=== PATIENT | male | born 1970 | race Caucasian/White ===

== ENCOUNTER 2023-10-04 14:59 | Emergency (ER) | payer BC, SELFPAY ==
[2023-10-04 15:04] VITALS: BP 158/94
[2023-10-04 15:25] LABS: % Basophils 0.6 % (0-2); % Eosinophils 5.3 % (0-6); % Immature Granulocytes 1.4 % (0-0.5); % Monocytes 6.5 % (1.7-9.3); % Neutrophils 62.2 % (42.2-75.2); Absolute Eosinophils 0.4 10^3/uL (0-0.7); Absolute Immature Granulocytes 0.1 10^3/uL (0-0.05); Absolute Lymphocytes 1.7 10^3/uL (1.2-3.4); Absolute Monocytes 0.5 10^3/uL (0.1-0.6); Absolute Neutrophils 4.4 10^3/uL (1.4-6.5); Hemoglobin 13.1 g/dL (13.0-18.0); Mean Corp Hgb Conc. 33.6 g/dL (33.0-37.0); Mean Corpuscular Hgb 32.3 pg (27.0-31.0); Mean Corpuscular Volume 96.1 fL (80.0-94.0); Mean Platelet Volume 9.8 fL (7.4-10.4); Nucleated Red Blood Cells % 0 % (-); Platelet Count 269 10^3/uL (130-400); Red Blood Cell Count 4.06 10^6/uL (4.70-6.10); Red Cell Dist. Width 12.3 % (11.5-14.5)
[2023-10-04 15:28] LABS: Urine Albumin Negative (Neg - Trace); Urine Bilirubin Negative (Negative); Urine Character Clear (Clear); Urine Color Yellow; Urine Glucose Negative (Negative); Urine Ketone Negative (Negative); Urine Leukocyte Negative (Negative); Urine Nitrite Negative (Negative); Urine Occult Blood Negative (Negative); Urine Urobilinogen Negative (Neg - 1+)
[2023-10-04 15:43] LABS: ALT (SGPT) 38 U/L (0-50); AST (SGOT) 34 U/L (17-59); Albumin 4.2 g/dl (3.5-5.0); Alkaline Phosphatase 137 U/L (38-126); Blood Urea Nitrogen 12 mg/dl (9-20); Calcium 9.3 mg/dl (8.4-10.2); Carbon Dioxide 32 mmol/L (22-30); Chloride 100 mmol/L (98-107); Glucose 115 mg/dl (70-99); Potassium 5.1 mmol/L (3.5-5.1); Sodium 134 mmol/L (135-145); Total Bilirubin 0.6 mg/dl (0.2-1.3); Total Protein 6.8 g/dl (6.3-8.2); eGFR > 60.00
--- NOTE | 2023-10-04 16:14 | ED.GENMED ---
History of Present Illness
General
Chief Complaint: Post Operative Problem(s)
Time Seen by Provider: 10/04/23 16:14
Travel History
Have you had any contact with someone who has COVID-19?: No
Do you have any symptoms of coronavirus? Fever > 100 degrees, chills, cough, shortness of breath, sore throat, loss of taste or smell, muscle aches, or headache?: No
History of Present Illness
History of Present Illness:
HPI: Patient had spine fusion 09/19/2023 at [facility]. He has been having urinary incontinence and ongoing back pain. The back pain is less severe but the urinary continence started about 4 days ago. He was able to void spontaneously upon arrival here.
He denies fevers.
EXAM:
GENERAL: Well appearing in no distress
HEENT: Moist oral mucosa
ABDOMEN: Soft with no peritoneal signs, no tenderness
NEUROLOGIC: Excellent strength all extremities, no coordination deficits, he has excellent L5 and S1 strength, he is able to lift both lower extremities at the hip off the stretcher with some pain but no significant weakness
BACK: He has decreased active range of motion of the thoracolumbar spine and moves slowly on the stretcher, he has strong anal tone
PSYCHIATRIC: Appropriate mental status, normal insight and judgement
EXTREMITIES: Nontender, no edema, moves all extremities equally
SKIN: No rash, no lesions
ED COURSE:
4:30 PM: I initially evaluated patient
NUMBER AND COMPLEXITY OF PROBLEMS ADDRESSED AT THE ENCOUNTER
� Chronic conditions affecting care: High blood pressure, GERD, recent lumbar surgery at [facility]
� Acute Exacerbation and/or Progression of Chronic Illness: This is an acute problem
� Differential Diagnosis includes: Postoperative pain, cauda equina syndrome, spinal hemorrhage
AMOUNT AND/OR COMPLEXITY OF DATA TO BE REVIEWED AND ANALYZED
� I performed an independent evaluation of and my interpretation is:
EKG:
CT:
X-rays:
Laboratory Studies: CBC unremarkable including normal white count, chemistries unremarkable
Other: Postvoid residual by bladder scan ultrasound was 42 mL
� Review of other/old records: The patient had an EKG in February 2023 here which was normal
� Clinical information was obtained by an independent historian: Lives at home
� Prescriptions/Medications Considered but not given:
� Further testing considered but not performed:
RISK OF COMPLICATIONS AND/OR MORBIDITY OR MORTALITY OF PATIENT MANAGEMENT
� Social determinants of health affecting care: Lives at home
� Discussion with other providers: Requested MRI to Dr. Bahena at 4:35 PM he did authorize the MRI with and without contrast.
� Escalation of care including admission/observation vs risk of discharge considered: Will obtain MRI with and without contrast. MRI reported at 7 PM shows concern for 4.3 cm epidural abscess at L3-4 along with concern for acute
infectious discitis/adjacent osteomyelitis at L2-3. I discussed case with Dr. Matute at [facility] at 7:20 PM who accepts to his service.
Phy Exam
Physical Exam
Physical Exam:
See HPI
Course
Orders/Labs/Results
Orders:
Orders
10/04/23 15:17
CMP [Comprehensive Metabolic Panel] Urgent
Complete Blood Count/With Diff Urgent
Urinalysis Reflex To Culture Urgent
Date Specimen was Collected: 10/04/23
Time Specimen was Collected: 15:14
10/04/23 16:16
Bladder Scan- Treatment ONCE
10/04/23 16:53
MR Lumbar W/o & With Contrast Urgent
Comment:
Reason For Exam: post op urinary incont; 09/19/23 L2/3 laminect/fusio
Recent pill cam endoscopy?: No
10/04/23 19:24
Diazepam [Valium] 10 mg PO NOW STA
Abnormal Lab Results
10/04/23
15:17
RBC 4.06 L 10^6/uL
(4.70-6.10)
MCV 96.1 H fL
(80.0-94.0)
MCH 32.3 H pg
(27.0-31.0)
Abs Immat Gran (auto) 0.1 H 10^3/uL
(0-0.05)
Immature Gran % 1.4 H %
(0-0.5)
Sodium 134 L mmol/L
(135-145)
Carbon Dioxide 32 H mmol/L
(22-30)
Glucose 115 H mg/dl
(70-99)
Alkaline Phosphatase 137 H U/L
(38-126)
10/04/23 15:17
10/04/23 15:17
Vital Signs
Initial and Last Documented VS:
Initial Vital Signs
Temp Pulse Resp BP Pulse Ox
97.8 F 77 18 158/94 100
10/04/23 15:04 10/04/23 15:04 10/04/23 15:04 10/04/23 15:04 10/04/23 15:04
Last Documented Vital Signs
Temp Pulse Resp BP Pulse Ox
97.8 F 77 18 158/94 100
10/04/23 15:04 10/04/23 15:04 10/04/23 15:04 10/04/23 15:04 10/04/23 15:04
*Critical Care Note
Total Time (30-74mins, 75-104mins- exclusive of procedures): Not Applicable
ED Attending Note
-
Portions of this chart may have been created with voice recognition software.� Occasional wrong word or��sound alike� substitutions may have occurred due to the inherent limitations of voice recognition software.
Discharge Plan
Departure
Patient Disposition: Acute Care Hospital
Date of Disposition: 10/04/23
Time of Disposition: 19:22
Discharge Problem:
Abnormal MRI, Post-operative pain
Referrals:
NONE,* [Active] -
Hospital Transfer
Other hospital: [facility]
I certify that the patient requires transfer: Yes
Discussed case with accepting physician: Dr. Bryan Matute
Reason for transfer: higher level of care
Interventions
Interventions:
*General Assessment Last Done: 10/04/23 17:08
*ED COVID-19 Vaccine History Last Done: 10/04/23 17:08
[2023-10-04] MEDS: VALIUM 10 MG PO (19:35)
[2023-10-04 20:01] VITALS: BP 113/93
[2023-10-04] MEDS: ROXICODONE 10 MG PO (21:51)
[2023-10-04 22:43] VITALS: BP 146/87
== END 2023-10-04 23:03 | disposition short-term general hospital (02) ==
LOC: EMR 14:59
PROVIDERS: Physician Assistant Medical; EMERGENCY PHYSICIAN Emergency Medicine; FAMILY PHYSICIAN Family Medicine
DX: G89.18 Other acute postprocedural pain (principal); R32 Unspecified urinary incontinence; M54.9 Dorsalgia, unspecified; M46.26 Osteomyelitis of vertebra, lumbar region; M46.46 Discitis, unspecified, lumbar region; G06.1 Intraspinal abscess and granuloma; K21.9 Gastro-esophageal reflux disease without esophagitis; I10 Essential (primary) hypertension; Z98.1 Arthrodesis status
CPT/HCPCS: 99285; 51798; 72158; 80053; 81003; 85025; A9575